=== PATIENT | female | born 1950 | race Caucasian/White ===

== ENCOUNTER 2016-09-20 09:09 | Emergency (ER) | payer OTHER, MEDICARE ==
[~2016-09-20] VITALS: Ht 160 cm; Wt 63.5 kg
[~2016-09-20 09:09] MED LIST: IBUPROFEN400 M1 PO; KEFLEX500 M1 PO
--- NOTE | 2016-09-20 09:38 | ED AMS/SEIZURE/WEAK/DIZZY ---
History of Present Illness General Chief Complaint: Altered Mental Status Stated Complaint: BIBA FOR ?AMS Source: patient, family (ex-), old records Exam Limitations: confusion, dementia Vital Signs & Intake/Output Vital Signs & Intake/Output Vital Signs Date Time Temp Pulse Resp B/P Pulse O2 O2 Flow FiO2 Ox Delivery Rate 09/21 1405 98.3 99 18 146/83 98 Room Air 09/21 0736 98.3 80 18 117/84 99 Room Air 09/20 2039 74 16 125/73 96 Room Air 09/20 1727 98.5 69 20 117/69 97 Room Air 09/20 1709 Room Air 09/20 1530 98.0 70 20 120/70 97 Room Air ED Intake and Output 09/21 0000 09/20 1200 Intake Total 10 Output Total Balance 10 Intake, Oral 10 Patient 140 lb Weight Allergies Coded Allergies: NO KNOWN ALLERGIES (07/17/15) Reconcile Medications Cephalexin (Keflex) 500 MG CAPSULE 1 CAP PO TID INFECTION Ibuprofen 400 MG TABLET 1 TAB PO Q8 PRN PAIN Triage Note: BIBA FROM HOME, PT HAS NO SPECIFIC COMPLAINTS. SPEAKS TURKMEN ONLY. PMH: DEMENTIA, AWAKE. PER EMS, PT WAS KNOCKING AT NEIGHBOR'S DOOR. Triage Nurses Notes Reviewed? yes HPI: 66-year-old female with history of dementia brought in by ambulance from home, she lives with her ex-, they the only 2 in the house, he is the primary historian due to patient being confused. He states that over the past week she has been more confused, difficult to manage, she has had a poor appetite, she is hallucinating, she was walking out of the house by herself unassisted and was knocking on the neighbor's door the other day. She has no complaints at this time, no fall or injury no fever or flulike illness no vomiting no chest pain no abdominal pain. He states that he cannot manage her anymore at home. (MABLE REBOLLAR) Past History Travel History Traveled to [place] past 21 day No Medical History Any Pertinent Medical History? see below for history Neurological: Alzheimer's disease, brain tumor status post resection Cardiovascular: ?HYPERLIPIDEMIA Surgical History Surgical History: CRANIOTOMY, TUMOR RESECTION Psychosocial History What is your primary language Maltese Tobacco Use: Never used ETOH Use: denies use Family History Hx Contributory? No (MABLE REBOLLAR) Review of Systems Review of Systems Constitutional: Reports: see HPI. Comments UNABLE TO ASSESS DUE TO PATIENT'S DEMENTIA and confusion (MABLE REBOLLAR) Physical Exam Physical Exam General Appearance: well developed/nourished Comments: Alert, pleasantly confused, appears to be hallucinating. Well-developed well-nourished no apparent distress. HEENT: Atraumatic, extraocular motion intact Neck: Supple, no lymphadenopathy Back: Nontender Respiratory: No respiratory distress, and clear to auscultation bilateral. Heart: Regular rate and rhythm no murmur Abdomen: Soft nontender nondistended Extremities: No edema, full range of motion Neuro: Alert and confused Psych: pleasant Skin: Warm and dry, no rash on exposed skin (MABLE REBOLLAR) Core Measures ACS in differential dx? No CVA/TIA Diagnosis: No Severe Sepsis Present: No Septic Shock Present: No (VITOR RICHARDS MD) Progress Plan of Care: Current Medications Sig/Sanjuana Start time Last Medication Dose Stop Time Status Admin Acetaminophen 650 MG ONCE ONE 09/21 1415 UNVr (Tylenol) 09/21 1416 09/21/2016 8:19:03 AM Patient signed out to me by Dr. Hubert roman. Pending evaluation in the ER by [facility]. She continues to be on a one-to-one sitter. 2:09 PM Patient to be tansported to [place] for detention care. (VITOR RICHARDS MD) Diagnostic Imaging: Viewed by Me: Radiology Read, CT Scan. Discussed w/RAD: Radiology Read, CT Scan. Radiology Impression: PATIENT: ALIZE RILEY PRESENT AGE: 66 PATIENT ACCOUNT NO: [id number] : 49 LOCATION: [facility] ORDERING PHYSICIAN: MABLE AVILA SERVICE DATE: 09/20/16 EXAM TYPE : CAT - CT HEAD WO IV CONTRAST EXAMINATION: CT HEAD WITHOUT CONTRAST CLINICAL INFORMATION: Altered mental status. Worsening dementia. COMPARISON: Brain MRI , 10/06/2009. TECHNIQUE: Contiguous axial imaging was performed from the skull base to vertex without intravenous administration of contrast. DLP: 529.16 mGy-cm. 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 There is synthetic graft material covering the calvarial defect. Scattered foci of air are located within the material however there is no evidence of associated inflammatory changes within the overlying scalp or worrisome dural thickening to suggest superimposed infection. There is no acute intracranial hemorrhage or abnormal extra axial collection. No intracranial mass effect or midline shift. Lateral and third ventricles are prominent and there is proportionate prominence of the subarachnoid spaces reflecting a mild degree of global parenchymal volume loss. Wilson-white matter differentiation is grossly preserved and there is no evidence of acute territorial infarct. There is no mastoid or middle ear effusion. Moderate paranasal sinus disease within the left sphenoid chamber. IMPRESSION: No acute intracranial finding. Specifically no evidence of acute territorial infarct or hemorrhage. There are chronic changes related to a right frontal calvarial mass resection. There are scattered foci of air within the synthetic graft material covering the calvarial defect with no worrisome inflammatory changes or associated dural thickening to suggest superimposed infection. DICTATED BY: LYNDON WILCOX MD DATE/TIME DICTATED:09/20/16943 FURNACE CLEANER: RONY DATE/TIME TRANSCRIBED:09/20/16943 CXR Impression: no acute abnormality, no infiltrates Initial ED EKG: none Hand-Off Endorsed To: CARYN BOONE MD Endorsed Time: 1911 Pending: other Comments: Patient medical workup unremarkable. Her ex- states that he cannot care for any longer, I discussed this with case management and attending doctor, Dr. Alvarado. Case management is working on placement for her to a nursing facility or possibly admission to the hospital as a social admission. Patient was seen by case management and they're trying to place her into a nursing facility. At change of shift, patient will require overnight stay in the emergency department while a bed search continues. She is signed out to Dr. Boone at change of shift. She will have an on-site evaluation by one of the nursing facilities at 9:30 AM. (MABLE REBOLLAR) Differential Diagnosis: CVA/stroke, dementia, delerium (SUSIE SHOEMAKER,VITOR) Departure Departure Condition: Stable Clinical Impression Primary Impression: Dementia Qualifiers: Dementia type: unspecified type Dementia behavioral disturbance: without behavioral disturbance Qualified Code: F03.90 - Unspecified dementia without behavioral disturbance Referrals: TERESITA BARROW MD (PCP/Family) Departure Forms: Customer Survey General Discharge Information (MABLE REBOLLAR) Departure Time of Disposition: 1408 Disposition: ACUTE REHAB FACILITY PA/CERTIFIED MEDICAL CODING SPECIALIST Co-Sign Statement Statement: ED Attending supervision documentation- [X] I saw and evaluated the patient. I have also reviewed all the pertinent lab results and diagnostic results. I agree with the findings and the plan of care as documented in the PA's/CERTIFIED MEDICAL CODING SPECIALIST's documentation. [X] I have reviewed the ED Record and agree with the PA's/CERTIFIED MEDICAL CODING SPECIALIST's documentation. [] Additions or exceptions (if any) to the PAs/CERTIFIED MEDICAL CODING SPECIALIST's note and plan are summarized below: [] (VITOR RICHARDS MD) Statement: ED Attending supervision documentation- [X] I saw and evaluated the patient. I have also reviewed all the pertinent lab results and diagnostic results. I agree with the findings and the plan of care as documented in the PA's/CERTIFIED MEDICAL CODING SPECIALIST's documentation. [X] I have reviewed the ED Record and agree with the PA's/CERTIFIED MEDICAL CODING SPECIALIST's documentation. [] Additions or exceptions (if any) to the PAs/CERTIFIED MEDICAL CODING SPECIALIST's note and plan are summarized below: [] (VITOR RICHARDS MD) [] (VITOR RICHARDS MD)
--- NOTE | 2016-09-20 09:54 | RADIOLOGY REPORT ---
EXAMINATION: XR PORTABLE CHEST CLINICAL INFORMATION: Evaluate for pneumonia altered mental status. COMPARISON: July 2009 two-view chest TECHNIQUE: Portable view of the chest was obtained. FINDINGS: No significant abnormality is noted involving the heart, lungs, mediastinum, bony thorax or soft tissues. IMPRESSION: Unremarkable examination.
--- NOTE | 2016-09-20 10:05 | CT SCAN REPORT ---
EXAMINATION: CT HEAD WITHOUT CONTRAST CLINICAL INFORMATION: Altered mental status. Worsening dementia. COMPARISON: Brain MRI 04/09/2012, 10/06/2009. TECHNIQUE: Contiguous axial imaging was performed from the skull base to vertex without intravenous administration of contrast. DLP: 529.16 mGy-cm. 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 There is synthetic graft material covering the calvarial defect. Scattered foci of air are located within the material however there is no evidence of associated inflammatory changes within the overlying scalp or worrisome dural thickening to suggest superimposed infection. There is no acute intracranial hemorrhage or abnormal extra axial collection. No intracranial mass effect or midline shift. Lateral and third ventricles are prominent and there is proportionate prominence of the subarachnoid spaces reflecting a mild degree of global parenchymal volume loss. Wilson-white matter differentiation is grossly preserved and there is no evidence of acute territorial infarct. There is no mastoid or middle ear effusion. Moderate paranasal sinus disease within the left sphenoid chamber. IMPRESSION: No acute intracranial finding. Specifically no evidence of acute territorial infarct or hemorrhage. There are chronic changes related to a right frontal calvarial mass resection. There are scattered foci of air within the synthetic graft material covering the calvarial defect with no worrisome inflammatory changes or associated dural thickening to suggest superimposed infection.
[2016-09-20 10:26] LABS: ABSOLUTE BASOPHIL COUNT 0 /CUMM (0.0-0.2); ABSOLUTE EOSINOPHIL COUNT 0.1 /CUMM (0.0-0.7); ABSOLUTE GRANULOCYTE CT 5.7 /CUMM (1.4-6.5); ABSOLUTE LYMPH COUNT 1.7 /CUMM (1.2-3.4); ABSOLUTE MONOCYTE COUNT 0.7 /CUMM (0.10-0.60); BASOPHIL % 0.5 % (0.0-2.0); EOSINOPHIL % 1.3 % (0-5); GRANULOCYTE % 69.8 % (42.2-75.2); HEMATOCRIT 38.4 % (37-47); MEAN CORPUSCULAR HGB 27.1 PG (27.0-31.0); MEAN CORPUSCULAR HGB CONC 33.5 G/DL (33.0-37.0); MEAN CORPUSCULAR VOLUME 80.9 FL (81.0-99.0); MEAN PLATELET VOLUME 8.4 FL (7.4-10.4); PLATELET COUNT 235 /CUMM (130-400); RBC DISTRIBUTION WIDTH 13.4 % (11.5-14.5); RED BLOOD CELL CT 4.75 /CUMM (4.20-5.40); WHITE BLOOD CELL COUNT 8.2 /CUMM (4.8-10.8)
[2016-09-21 14:05] VITALS: BP 146/83
== END 2016-09-21 16:15 ==
LOC: ERH 09:09
PROVIDERS: Physician Assistant Surgical
DX: F03.90 Unspecified dementia, unspecified severity, without behavioral disturbance, psychotic disturbance, mood disturbance, and anxiety (principal)
CPT/HCPCS: 81003; 87086